=== PATIENT | female | born 1980 | race Caucasian/White ===

== ENCOUNTER → 2018-05-01 | Outpatient (CLI) | payer BC ==
--- NOTE | 2018-05-01 08:43 | US ---
EXAMINATION TYPE: US abdomen complete DATE OF EXAM: 05/01/2018 COMPARISON: NONE CLINICAL HISTORY: R10.9 Unspecified Abd Pain. h/o ulcers EXAM MEASUREMENTS: Liver Length: 15.9 cm Gallbladder Wall: 0.2 cm CBD: 0.5 cm Spleen: 10.8 cm Right Kidney: 10.3 x 2.9 x 4.6 cm Left Kidney: 10.0 x 5.2 x 5.6 cm Pancreas: Visualized portions within normal limits Liver: wnl Gallbladder: No stones seen Evidence for sonographic Alex's sign: No CBD: wnl Spleen: wnl Right Kidney: No hydronephrosis or masses seen Left Kidney: No hydronephrosis or masses seen Upper IVC: wnl Abd Aorta: wnl The visualized liver is slightly heterogeneous. The intrahepatic portion of the IVC and visualized a bdominal aorta are within normal limits. There is no evidence of cholelithiasis. Common bile duct i s unremarkable. The visualized portions of the pancreas are homogenous. The spleen is unremarkable. Kidneys are symmetric and free of hydronephrosis. No renal lesions are seen. IMPRESSION: No suspicious acute finding is seen to account for patient's symptoms.
== END | disposition home or self-care (01) ==
LOC: RADUSWWP 06:53
PROVIDERS: ATTEND Nurse Practitioner Adult Health
DX: R74.8 Abnormal levels of other serum enzymes (principal)
CPT/HCPCS: 76700

== ENCOUNTER → 2018-11-19 | Outpatient (CLI) | payer BC ==
--- NOTE | 2018-11-20 11:31 | US ---
EXAMINATION TYPE: US OB >= 14 wk fetus DATE OF EXAM: 11/19/2018 COMPARISON: None CLINICAL HISTORY: O43.129 Velamentous Insertion of umbilical cordMarginal insertion of umbilical cord . Velamentous insertion. 1 . TECHNIQUE: Transabdominal (TA) GESTATIONAL AGE / DATING Physician Established: (22 weeks/1 days) EDC: 03/24/2019 Dates by LMP: Unknown Dates by First Scan: This is first scan (22 weeks/2 days) EDC: 03/23/2019 Dates by Current Scan: (22 weeks/2 days) EDC: 03/23/2019 SURVEY IUP: Single PLACENTA: Anteroposterior. Cord appears to insert within lateral portion of anterior placenta. PREVIA: No Previa STEPHIE: 16.97 cm Normal CERVICAL LENGTH (transabdominal: norm > 3.0cm): 3.54 cm BIOMETRY PRESENTATION: Vertex at end of exam. BPD: 5.37 cm 22 weeks / 2 days HC: 20.22 cm 22 weeks / 3 days AC: 17.52 cm 22 weeks / 3 days FL: 4.08 cm 23 weeks / 2 days ESTIMATED WEIGHT IN GRAMS: 528.15 grams ESTIMATED WEIGHT IN LBS/OZ: 1 lbs. 3 oz. WEIGHT PERCENTAGE BASED ON ESTABLISHED DATES: 73.2% HC/AC: 1.15 Normal FL/AC: 23.27 Normal HEART RATE: 146 bpm RHYTHM: Normal small parts not otherwise evaluated at this time Tech: NW/KS IMPRESSION: 1. Unusual insertion of the umbilical cord on the placenta, cord insertion appears to be within the a nterior lateral aspect of the placenta. 2. Single intrauterine gestation estimated at 22 weeks 2 days gestation based on current ultrasound m easurements. Calculated EDC of 03/23/2019. 3. Cardiac activity measures 146.
== END | disposition home or self-care (01) ==
LOC: RADUSWWP 16:14
PROVIDERS: ATTEND Midwife
DX: O43.122 Velamentous insertion of umbilical cord, second trimester (principal); Z3A.22 22 weeks gestation of pregnancy
CPT/HCPCS: 76805

== ENCOUNTER → 2018-12-10 | Outpatient (CLI) | payer BC ==
--- NOTE | 2018-12-10 13:25 | US ---
EXAMINATION TYPE: US OB >= 14 wk fetus DATE OF EXAM: 12/10/2018 COMPARISON: US 11/19/2018 CLINICAL HISTORY: O43.129 Velamentous insertion of umbilical cord Marginal cord insertion, growth TECHNIQUE: Transabdominal (TA) GESTATIONAL AGE / DATING Physician Established: (25 weeks/1 days) EDC: 03/24/2019 Dates by LMP: (25 weeks/1 days) EDC: 03/24/2019 Dates by First Scan: (25 weeks/ 2 days) EDC: 03/23/2019 Dates by Current Scan: (25 weeks/5 days) EDC: 03/20/2019 Beta HCG (if available): Not available at this time SURVEY IUP: Single PLACENTA: Anterior PREVIA: No Previa STEPHIE: 16.2 cm Normal CERVICAL LENGTH (transabdominal: norm > 3.0cm): 4.0 cm BIOMETRY PRESENTATION: Vertex LIE: Longitudinal BPD: 6.5 cm 26 weeks / 2 days HC: 24.1 cm 26 weeks / 1 days viable AC: 21.5 cm 26 weeks / 0 days FL: 4.8 cm 26 weeks / 0 days ESTIMATED WEIGHT IN GRAMS: 883.62 grams ESTIMATED WEIGHT IN LBS/OZ: 1 lbs. 15 oz. WEIGHT PERCENTAGE BASED ON ESTABLISHED DATES: 78.7% HC/AC: 1.12 Normal FL/AC: 22.28 Normal HEART RATE: 153 bpm RHYTHM: Normal MATERNAL WALL MEASUREMENT: 4.2 cm from skin to anterior uterine wall (if exam limited due to body hab itus). Viable IUP, measurements consistent with dates. Umbilical cord appears to have a marginal cord insert ion. IMPRESSION: 1. Umbilical cord has a marginal cord insertion. 2. Viable of 25 weeks 5 days with a heart rate 153 bpm.
== END | disposition home or self-care (01) ==
LOC: RADUSWWP 12:16
PROVIDERS: ATTEND Obstetrics & Gynecology
DX: O43.122 Velamentous insertion of umbilical cord, second trimester (principal); Z3A.25 25 weeks gestation of pregnancy
CPT/HCPCS: 76805

== ENCOUNTER → 2018-12-31 | Outpatient (CLI) | payer BC ==
--- NOTE | 2018-12-31 11:46 | US ---
EXAMINATION TYPE: US OB >= 14 wk fetus DATE OF EXAM: 12/31/2018 COMPARISON: Most recent exam of 12/10/2018 CLINICAL HISTORY: O43.129 Velamentous insertion of umbilical cord Serial growth ultrasound exams. TECHNIQUE: Transabdominal (TA) GESTATIONAL AGE / DATING Physician Established: (28 weeks/1 days) EDC: 03/24/2019 Dates by Current Scan: (30 weeks/2 days) EDC: 03/09/2019 Beta HCG (if available): Not available at this time SURVEY IUP: Single PLACENTA: Anterior PREVIA: No Previa STEPHIE: 16.9 cm Normal CERVICAL LENGTH (transabdominal: norm > 3.0cm): 4.3 cm BIOMETRY PRESENTATION: Vertex BPD: 7.4 cm 29 weeks / 5 days HC: 27.9 cm 30 weeks / 4 days AC: 26.2 cm 30 weeks / 3 days FL: 5.7 cm 30 weeks / 0 days ESTIMATED WEIGHT IN GRAMS: 1523 grams ESTIMATED WEIGHT IN LBS/OZ: 3 lbs. 6 oz. WEIGHT PERCENTAGE BASED ON ESTABLISHED DATES: 97% HC/AC: 1.1 Normal FL/AC: 22% Normal HEART RATE: 142 bpm RHYTHM: Normal MATERNAL WALL MEASUREMENT: 3.2 cm from skin to anterior uterine wall (if exam limited due to body hab itus). Single live IUP measuring 30 weeks 2 days . Again the umbilical cord appears in a marginal cord inser tion. IMPRESSION: Single live intrauterine with a sonographic age of 30 weeks and 2 days and estimated date o f delivery of 03/09/2019, discordant with current physician established dates. Umbilical cord is simil ar to the prior. Have a marginal cord insertion.
== END | disposition home or self-care (01) ==
LOC: RADUSWWP 10:57
PROVIDERS: ATTEND Obstetrics & Gynecology
DX: O43.123 Velamentous insertion of umbilical cord, third trimester (principal); Z3A.30 30 weeks gestation of pregnancy
CPT/HCPCS: 76805

== ENCOUNTER → 2019-01-21 | Outpatient (CLI) | payer BC ==
--- NOTE | 2019-01-21 13:35 | US ---
EXAMINATION TYPE: US OB >= 14 wk fetus DATE OF EXAM: 01/21/2019 COMPARISON: US dated 12/31/2018, 12/10/2018 and 11/19/2018 CLINICAL HISTORY: O43.129 VELAMENTOUS INSERTION OF UMBILICAL CORD TECHNIQUE: Transabdominal (TA) GESTATIONAL AGE / DATING Physician Established: (31 weeks/1 days) EDC: 03/24/19 Dates by LMP: (31 weeks/1 days) EDC: 03/24/19 Dates by First Scan: (31 weeks/2 days) EDC: 03/23/19 Dates by Current Scan: (32 weeks/2 days) EDC: 03/16/19 SURVEY IUP: Single PLACENTA: Anterior, history of velamentous cord insert PREVIA: No Previa STEPHIE: 11.4 cm CERVICAL LENGTH (transabdominal: norm > 3.0cm): 4.6 cm BIOMETRY PRESENTATION: Vertex BPD: 8.3 cm 33 weeks / 2 days HC: 29.9 cm 33 weeks / 1 days AC: 28.0 cm 32 weeks / 0 days FL: 6.2 cm 32 weeks / 2 days ESTIMATED WEIGHT IN GRAMS: 1957 grams ESTIMATED WEIGHT IN LBS/OZ: 4 lbs. 5 oz. WEIGHT PERCENTAGE BASED ON ESTABLISHED DATES: 78% HC/AC: 1.1 FL/AC: 22.3 HEART RATE: 149 bpm RHYTHM: Normal There is an overall unchanged appearance of the cord insertion at the edge of the placenta, marginal cord insertion. IMPRESSION: Single live intrauterine has a sonographic age of 32 weeks and 2 days and estimated date of delivery of 03/16/2019 near concordant with menstrual age. Unchanged appearance of the known marginal umbilical cord insertion.
== END | disposition home or self-care (01) ==
LOC: RADUSWWP 10:59
PROVIDERS: ATTEND Obstetrics & Gynecology
DX: O43.123 Velamentous insertion of umbilical cord, third trimester (principal); Z3A.32 32 weeks gestation of pregnancy
CPT/HCPCS: 76805

== ENCOUNTER → 2019-02-11 | Outpatient (CLI) | payer BC ==
--- NOTE | 2019-02-11 13:21 | US ---
EXAMINATION TYPE: US OB >= 14 wk fetus DATE OF EXAM: 02/11/2019 COMPARISON: US CLINICAL HISTORY: O43.129 VELAMENTOUS INSERTION OF UMBILICAL CORD TECHNIQUE: GESTATIONAL AGE / DATING Physician Established: (34 weeks/1 days) EDC: 03/24/19 Dates by LMP: (34 weeks/1 days) EDC: 03/24/19 Dates by First Scan: (34 weeks/ 0 days) EDC: 03/23/19 Dates by Current Scan: (35 weeks/4 days) EDC: 03/14/19 Beta HCG (if available): SURVEY IUP: Single PLACENTA: Anterior Marginal PREVIA: none STEPHIE: 13.1 cm CERVICAL LENGTH (transabdominal: norm > 3.0cm): 3.8 cm BIOMETRY PRESENTATION: Vertex BPD: 8.9 cm 36 weeks / 0 days HC: 32.1 cm 36 weeks / 1 days AC: 31.4 cm 35 weeks / 2 days FL: 7.0 cm 35 weeks / 6 days ESTIMATED WEIGHT IN GRAMS: 2726 grams ESTIMATED WEIGHT IN LBS/OZ: 6 lbs. 0 oz. WEIGHT PERCENTAGE BASED ON ESTABLISHED DATES: %85 HC/AC: 1.0 FL/AC: 22.2 HEART RATE: 158 bpm RHYTHM: Normal Marginal chord insert again noted. IMPRESSION: 1. Single intrauterine gestation currently estimated at 35 weeks 4 days gestation based on current ul trasound measurements. 2. Cardiac activity measures 158 bpm. 3. Marginal cord insertion is noted.
== END | disposition home or self-care (01) ==
LOC: RADUSWWP 10:52
PROVIDERS: ATTEND Obstetrics & Gynecology
DX: O43.123 Velamentous insertion of umbilical cord, third trimester (principal); Z3A.35 35 weeks gestation of pregnancy
CPT/HCPCS: 76805

== ENCOUNTER → 2019-03-04 | Outpatient (CLI) | payer BC ==
--- NOTE | 2019-03-04 11:57 | US ---
EXAMINATION TYPE: US OB >= 14 wk fetus DATE OF EXAM: 03/04/2019 COMPARISON: Ultrasounds dated 02/11/2019, 01/21/2019, 12/31/2018, 12/10/2018 and 11/19/2018. CLINICAL HISTORY: O43.129 VELAMENTOUS INSERTION OF UMBILICAL CORDFollow up marginal cord insertion TECHNIQUE: Transabdominal (TA) GESTATIONAL AGE / DATING Physician Established: (37 weeks/1 days) EDC: 03/24/2019 Dates by LMP: (37 weeks/1 days) EDC: 03/24/2019 Dates by First Scan: (37 weeks/2 days) EDC: 03/23/2019 Dates by Current Scan: (39 weeks/0 days) EDC: 03/11/2019 SURVEY IUP: Single PLACENTA: Anterior PREVIA: No Previa STEPHIE: 17.3 cm Normal CERVICAL LENGTH (transabdominal: norm > 3.0cm): 4.1 cm BIOMETRY PRESENTATION: Vertex BPD: 9.4 cm 38 weeks / 2 days HC: 34.6 cm 40 weeks / 1 days AC: 34.1 cm 38 weeks / 1 days FL: 7.7 cm 39 weeks / 3 days ESTIMATED WEIGHT IN GRAMS: 3537 grams ESTIMATED WEIGHT IN LBS/OZ: 7 lbs. 13 oz. WEIGHT PERCENTAGE BASED ON ESTABLISHED DATES: 89% HC/AC: 1.01 Normal FL/AC: 23% Normal HEART RATE: 161 bpm RHYTHM: Normal Live single IUP measuring 39 weeks 0 days with a heart rate of 161bpm and an estimated delivery date of 03/11/2019. Marginal cord insertion again noted. IMPRESSION: Continued demonstration of a marginal cord insertion in this single live intrauterine with a sonographic age of 39 weeks and 0 days and estimated date of delivery of 03/11/2019.
== END ==
LOC: RADUSWWP 10:59
PROVIDERS: ATTEND Obstetrics & Gynecology
DX: O43.123 Velamentous insertion of umbilical cord, third trimester (principal); Z3A.39 39 weeks gestation of pregnancy
CPT/HCPCS: 76805